=== PATIENT | female | born 1975 | race Caucasian/White ===

== ENCOUNTER 2017-02-17 19:01 | Emergency (ER) | payer OTHER ==
[2017-02-17 22:12] LABS: BUN/CREATININE RATIO 16 (0-10)
== END 2017-02-17 23:34 | disposition home or self-care (01) ==
LOC: ER1 19:01
PROVIDERS: Specialist/Technologist Athletic Trainer
DX: R11.2 Nausea with vomiting, unspecified (principal); F17.210 Nicotine dependence, cigarettes, uncomplicated; Z90.49 Acquired absence of other specified parts of digestive tract; Z79.899 Other long term (current) drug therapy
CPT/HCPCS: 36415; 80053; 81001; 96361; 96374; 99284; J2405; J7030